=== PATIENT | male | born 1955 | race Caucasian/White ===

== ENCOUNTER → 2016-04-11 | Outpatient (CLI) | payer BC ==
[~2016-04-11] MED LIST: ALLO100T51 PO; CIPR-151 PO; DOCU-129 PO; FLUC200T51 PO; FURO20TA6 PO; HYDR-696 PO; LISI-126 PO; MAGN800O4 PO; POTA10TA PO
== END ==
LOC: NWCC 14:35
PROVIDERS: ATTEND Surgery
DX: I87.2 Venous insufficiency (chronic) (peripheral) (principal); L97.222 Non-pressure chronic ulcer of left calf with fat layer exposed; L97.212 Non-pressure chronic ulcer of right calf with fat layer exposed; R60.1 Generalized edema; Z86.14 Personal history of Methicillin resistant Staphylococcus aureus infection
CPT/HCPCS: 29581

== ENCOUNTER → 2016-04-18 | Outpatient (CLI) | payer BC ==
[~2016-04-18] MED LIST changes: +CALMOSEPTINE OINTMENT 3.5 G PACKET TOP ONE
== END ==
LOC: NWCC 15:04
PROVIDERS: ATTEND Surgery
DX: I87.2 Venous insufficiency (chronic) (peripheral) (principal); L97.222 Non-pressure chronic ulcer of left calf with fat layer exposed; L97.212 Non-pressure chronic ulcer of right calf with fat layer exposed; R60.1 Generalized edema; Z86.14 Personal history of Methicillin resistant Staphylococcus aureus infection
CPT/HCPCS: 29581

== ENCOUNTER → 2016-04-25 | Outpatient (CLI) | payer BC ==
[~2016-04-25] MED LIST changes: -CALMOSEPTINE OINTMENT 3.5 G PACKET TOP ONE
== END ==
LOC: NWCC 14:54
PROVIDERS: ATTEND Surgery
DX: I87.2 Venous insufficiency (chronic) (peripheral) (principal); L97.222 Non-pressure chronic ulcer of left calf with fat layer exposed; L97.212 Non-pressure chronic ulcer of right calf with fat layer exposed; R60.1 Generalized edema; Z86.14 Personal history of Methicillin resistant Staphylococcus aureus infection
CPT/HCPCS: 29581; 99213; A6196

== ENCOUNTER → 2016-05-02 | Outpatient (CLI) | payer BC ==
[~2016-05-02] MED LIST changes: +CALMOSEPTINE OINTMENT 3.5 G PACKET TOP ONE
== END ==
LOC: NWCC 14:27
PROVIDERS: ATTEND Surgery
DX: I87.2 Venous insufficiency (chronic) (peripheral) (principal); L97.222 Non-pressure chronic ulcer of left calf with fat layer exposed; L97.212 Non-pressure chronic ulcer of right calf with fat layer exposed; R60.1 Generalized edema; Z86.14 Personal history of Methicillin resistant Staphylococcus aureus infection
CPT/HCPCS: 29581

== ENCOUNTER → 2016-05-09 | Outpatient (CLI) | payer BC | LOC: NWCC 11:09 | PROVIDERS: ATTEND Surgery | DX: I87.2 Venous insufficiency (chronic) (peripheral) (principal); L97.222 Non-pressure chronic ulcer of left calf with fat layer exposed; L97.212 Non-pressure chronic ulcer of right calf with fat layer exposed; R60.1 Generalized edema; E66.9 Obesity, unspecified; Z68.43 Body mass index [BMI] 50.0-59.9, adult; Z86.14 Personal history of Methicillin resistant Staphylococcus aureus infection | CPT/HCPCS: 97597; 97598; 99215; A6196 ==

== ENCOUNTER → 2016-05-16 | Outpatient (CLI) | payer BC | LOC: NWCC 14:59 | PROVIDERS: ATTEND Surgery | DX: I87.2 Venous insufficiency (chronic) (peripheral) (principal); L97.222 Non-pressure chronic ulcer of left calf with fat layer exposed; L97.212 Non-pressure chronic ulcer of right calf with fat layer exposed; R60.1 Generalized edema; Z86.14 Personal history of Methicillin resistant Staphylococcus aureus infection | CPT/HCPCS: 29581 ==

== ENCOUNTER → 2016-05-23 | Outpatient (CLI) | payer BC | LOC: NWCC 14:39 | PROVIDERS: ATTEND Surgery | DX: L97.222 Non-pressure chronic ulcer of left calf with fat layer exposed (principal); L97.212 Non-pressure chronic ulcer of right calf with fat layer exposed; R60.1 Generalized edema; I87.2 Venous insufficiency (chronic) (peripheral); Z86.14 Personal history of Methicillin resistant Staphylococcus aureus infection | CPT/HCPCS: 29581 ==

== ENCOUNTER → 2016-05-30 | Outpatient (CLI) | payer BC | LOC: NWCC 07:54 | PROVIDERS: ATTEND Surgery | DX: I87.2 Venous insufficiency (chronic) (peripheral) (principal); L97.222 Non-pressure chronic ulcer of left calf with fat layer exposed; L97.212 Non-pressure chronic ulcer of right calf with fat layer exposed; R60.1 Generalized edema; Z86.14 Personal history of Methicillin resistant Staphylococcus aureus infection | CPT/HCPCS: 29581; 99215; A6196 ==